=== PATIENT | female | born 1945 | race African-American/Black ===

== ENCOUNTER 2016-09-21 14:49 | Emergency (ER) | payer OTHER ==
[~2016-09-21] VITALS: Ht 157.5 cm; Wt 95.3 kg
--- NOTE | ~2016-09-21 | EKG ---
[address] [address] ELECTROCARDIOGRAM REPORT Name: SEBAS EPSTEIN Room #: DEP [facility]#: [id number] Admission: 09/21/16 Attend Phys: Discharge: 09/21/16 Date of : 47 Report #: [id number] THIS REPORT FOR: //name// [facility] ED Test Date: 2016-09-21 Test Time: 15:13:32 Pat Name: SEBAS EPSTEIN Department: Room: Gender: F [employer]: ISRA : 1945 Requested By: Jean Carlos Vaz Order Number: [id number] MD: Geronimo Marquez Measurements Intervals [place] Rate: 100 P: 62 ME: 206 QRS: 54 QRSD: 65 T: 33 QT: 395 QTc: 510 Interpretive Statements Sinus tachycardia Ventricular bigeminy Probable left atrial enlargement No previous ECG available for comparison Electronically Signed On 09-21-2016 17:26:07 [employer] by Geronimo Marquez [email or web address] <ELECTRONICALLY SIGNED> By: Geronimo Marquez MD 09/21/16 1726 1513 1513 MD ROGELIO Vasquez
[~2016-09-21 14:49] MED LIST: ALDACTONE; FENTANYL PA25 MCG/HR TP; IBUPROFEN 600600 M1 PO; NAPROSYN250 MG PO; NORCO 5-325 TA1 EACH PO; VALIUM5 MG PO; VERAPAMIL
[2016-09-21] MEDS ORDERED: VERAPAMIL ER240 M1 PO (15:18)
[2016-09-21] MEDS ORDERED: ASPIR 8181 MG PO (15:19)
[2016-09-21] MEDS ORDERED: ALDACTONE50 MG PO (15:19)
[2016-09-21] MEDS ORDERED: VITAMIN D5000 UNI1 PO (15:20)
[2016-09-21] MEDS ORDERED: FISH OIL 1,001000 M2 PO (15:20)
[2016-09-21 15:28] LABS: ABSOLUTE NEUTROPHILS 5.7 thou/uL (1.4-8.2); BASOPHILS 1.5 % (0.0-2.0); HEMATOCRIT 39.8 % (37.0-47.0); LYMPHOCYTES 37.5 % (24.0-44.0); MCH 25.4 pg (26.0-34.0); MCHC 32.8 % (28.0-37.0); MCV 77.6 fL (80.0-100.0); MONOCYTES 7.8 % (1.0-8.0); PLATELET COUNT 297 thou/uL (150-400); POLYS 50.2 % (36.0-66.0); RBC 5.13 mil/uL (4.20-5.00); RDW 14.3 % (10.5-14.5); WBC 11.4 thou/uL (4.0-11.0)
[2016-09-21 15:29] LABS: MANUAL DIFF NO
[2016-09-21 15:36] LABS: ANION GAP 9 mmol/L (7-16); BUN 15 mg/dL (7-18); CALCIUM 9.1 mg/dL (8.5-10.1); CHLORIDE 103 mmol/L (98-107); CO2 27 mmol/L (21-32); CREATININE 1.1 mg/dL (0.6-1.3); GLUCOSE 90 mg/dL (70-99); POTASSIUM 3.9 mmol/L (3.5-5.1); SODIUM 139 mmol/L (136-145)
[2016-09-21 15:49] LABS: NT-PRO BRAIN NAT PEPTIDE 141 pg/mL (<300); TROPONIN-I < 0.04 ng/mL (<0.04-0.07)
[2016-09-21] MEDS ORDERED: TESSALON PERLE100 MG PO (16:17)
[2016-09-21] MEDS ORDERED: NAPROSYN500 MG PO (16:17)
[2016-09-21 16:30] VITALS: BP 162/84
== END 2016-09-21 16:32 | disposition home or self-care (01) ==
LOC: ER 14:49
PROVIDERS: Nurse Practitioner
DX: R07.89 Other chest pain (principal); S39.011A Strain of muscle, fascia and tendon of abdomen, initial encounter; R05 Cough; X58.XXXA Exposure to other specified factors, initial encounter; Y93.89 Activity, other specified; Y92.89 Other specified places as the place of occurrence of the external cause; Y99.8 Other external cause status; I10 Essential (primary) hypertension; Z90.710 Acquired absence of both cervix and uterus; Z88.0 Allergy status to penicillin

== ENCOUNTER → 2017-05-28 | Outpatient (CLI) | payer OTHER ==
[~2017-05-28] MED LIST changes: +ALDACTONE50 MG PO; +ASPIR 8181 MG PO; +FISH OIL 1,001000 M2 PO; +NAPROSYN500 MG PO; +TESSALON PERLE100 MG PO; +VERAPAMIL ER240 M1 PO; +VITAMIN D5000 UNI1 PO
== END ==
LOC: RAD 03:58
DX: Z12.31 Encounter for screening mammogram for malignant neoplasm of breast (principal)

== ENCOUNTER → 2017-06-04 | Outpatient (CLI) | payer OTHER | LOC: ULTRA 08:41 | DX: N63 Unspecified lump in breast (principal) ==

== ENCOUNTER → 2018-08-10 | Outpatient (CLI) | payer OTHER | LOC: RAD 12:21 | DX: Z12.31 Encounter for screening mammogram for malignant neoplasm of breast (principal) ==

== ENCOUNTER → 2019-08-15 | Outpatient (CLI) | payer OTHER | LOC: RAD 14:32 | DX: Z12.31 Encounter for screening mammogram for malignant neoplasm of breast (principal) ==